=== PATIENT | female | born 1955 | race Caucasian/White ===

== ENCOUNTER 2021-02-16 16:31 | Emergency (ER) | payer SELFPAY ==
[2021-02-16 16:42] VITALS: BP 152/80; TEMP 101.4
[2021-02-16] MEDS ORDERED: ACETAMINOPHEN TAB 500 MG TAB PO STA (16:45)
--- NOTE | 2021-02-16 16:52 | ED ---
General Adult HPI - General Chief complaint: Upper Respiratory Infection Stated complaint: SOB Time Seen by Provider: 02/16/21 16:33 Source: patient, RN notes reviewed Mode of arrival: ambulatory Limitations: no limitations - History of Present Illness Initial comments: Patient is a pleasant [age]-year-old female presenting to the emergency department not feeling well. Symptoms have been occurring for around 10 days. Patient has had mild cough that worsened 2 days ago. Cough is dry nonproductive. Patient does feel short of breath. Patient has had intermittent subjective fevers. Patient did go to urgent care earlier and had an x-ray concerning for pneumonia. No loss of taste or smell. Patient has had some loose stools and decreased appetite. - Related Data Home Medications Medication Instructions Recorded Confirmed Cholecalciferol [Vitamin D3 (25 25 mcg PO DAILY 02/16/21 02/16/21 Mcg = 1000 Iu)] Multivitamins, Thera [Multivitamin 1 tab PO DAILY 02/16/21 02/16/21 (formulary)] [place]-3 Fatty Acids/Fish Oil [Fish 1 cap PO DAILY 02/16/21 02/16/21 Oil 1,000 mg Softgel] Allergies Allergy/AdvReac Type Severity Reaction Status Date / Time No Known Allergies Allergy Verified 02/16/21 17:36 Review of Systems ROS Statement: Those systems with pertinent positive or pertinent negative responses have been documented in the HPI. ROS Other: All systems not noted in ROS Statement are negative. Constitutional: Reports: as per HPI, fever, chills Eyes: Denies: eye pain ENT: Denies: ear pain Respiratory: Reports: as per HPI, cough, dyspnea Cardiovascular: Denies: chest pain Endocrine: Reports: fatigue Gastrointestinal: Denies: abdominal pain Genitourinary: Denies: dysuria Musculoskeletal: Denies: back pain Skin: Denies: rash Neurological: Denies: headache Past Medical History Past Medical History: No Reported History History of Any Multi-Drug Resistant Organisms: None Reported Past Surgical History: No Surgical Hx Reported Past Psychological History: No Psychological Hx Reported Smoking Status: Never smoker Past Alcohol Use History: Occasional Past Drug Use History: None Reported General Exam Limitations: no limitations General appearance: alert, in no apparent distress Head exam: Present: normocephalic Eye exam: Present: normal appearance Neck exam: Present: normal inspection Respiratory exam: Present: normal lung sounds bilaterally Cardiovascular Exam: Present: regular rate, normal rhythm GI/Abdominal exam: Present: soft. Absent: tenderness Extremities exam: Present: normal inspection. Absent: pedal edema, calf tenderness Neurological exam: Present: alert Psychiatric exam: Present: normal affect, normal mood Skin exam: Present: normal color Course Vital Signs 02/16/21 02/16/21 02/16/21 16:33 16:35 16:37 Temperature 101.4 F H Pulse Rate 102 H 92 Respiratory 20 18 18 Rate Blood Pressure 152/80 O2 Sat by Pulse 93 L 93 L Oximetry 02/16/21 17:00 Temperature Pulse Rate 96 Respiratory 18 Rate Blood Pressure 152/80 O2 Sat by Pulse 92 L Oximetry Medical Decision Making - Medical Decision Making Patient reevaluated and updated. Pulse ox 92-93% on room air. Patient is comfortable with discharge home. Patient updated on results and need for follow-up. - Lab Data Result diagrams: 02/16/21 16:58 02/16/21 16:58 Lab Results 02/16/21 02/16/21 02/16/21 Range/Units 16:45 16:58 16:58 WBC 6.7 (3.8-10.6) k/uL RBC 4.62 (3.80-5.40) m/uL Hgb 13.7 (11.4-16.0) gm/dL Hct 40.3 (34.0-46.0) % MCV 87.2 (80.0-100.0) fL MCH 29.7 (25.0-35.0) pg MCHC 34.0 (31.0-37.0) g/dL RDW 13.7 (11.5-15.5) % Plt Count 286 (150-450) k/uL MPV 7.5 Neutrophils % (Manual) 77 % Band Neuts % (Manual) 8 % Lymphocytes % (Manual) 9 % Monocytes % (Manual) 6 % Neutrophils # (Manual) 5.60 (1.3-7.7) k/uL Lymphocytes # (Manual) 0.60 L (1.0-4.8) k/uL Monocytes # (Manual) 0.40 (0-1.0) k/uL Nucleated RBCs 0 (0-0) /100 WBC Manual Slide Review Performed Sodium 135 L (137-145) mmol/L Potassium 3.6 (3.5-5.1) mmol/L Chloride 98 (98-107) mmol/L Carbon Dioxide 24 (22-30) mmol/L Anion Gap 13 mmol/L BUN 13 (7-17) mg/dL Creatinine 0.46 L (0.52-1.04) mg/dL Est GFR (CKD-EPI)AfAm >90 (>60 ml/min/1.73 sqM) Est GFR (CKD-EPI)NonAf >90 (>60 ml/min/1.73 sqM) Glucose 141 H (74-99) mg/dL Plasma Lactic Acid Os[place] (0.7-2.0) mmol/L Calcium 8.8 (8.4-10.2) mg/dL Total Bilirubin 0.7 (0.2-1.3) mg/dL AST 147 H (14-36) U/L ALT 88 H (4-34) U/L Alkaline Phosphatase 124 (38-126) U/L Total Protein 6.4 (6.3-8.2) g/dL Albumin 3.7 (3.5-5.0) g/dL Coronavirus (PCR) Detected A (Not Detectd) 02/16/21 Range/Units 16:58 WBC (3.8-10.6) k/uL RBC (3.80-5.40) m/uL Hgb (11.4-16.0) gm/dL Hct (34.0-46.0) % MCV (80.0-100.0) fL MCH (25.0-35.0) pg MCHC (31.0-37.0) g/dL RDW (11.5-15.5) % Plt Count (150-450) k/uL MPV Neutrophils % (Manual) % Band Neuts % (Manual) % Lymphocytes % (Manual) % Monocytes % (Manual) % Neutrophils # (Manual) (1.3-7.7) k/uL Lymphocytes # (Manual) (1.0-4.8) k/uL Monocytes # (Manual) (0-1.0) k/uL Nucleated RBCs (0-0) /100 WBC Manual Slide Review Sodium (137-145) mmol/L Potassium (3.5-5.1) mmol/L Chloride (98-107) mmol/L Carbon Dioxide (22-30) mmol/L Anion Gap mmol/L BUN (7-17) mg/dL Creatinine (0.52-1.04) mg/dL Est GFR (CKD-EPI)AfAm (>60 ml/min/1.73 sqM) Est GFR (CKD-EPI)NonAf (>60 ml/min/1.73 sqM) Glucose (74-99) mg/dL Plasma Lactic Acid Osiel 2.8 H* (0.7-2.0) mmol/L Calcium (8.4-10.2) mg/dL Total Bilirubin (0.2-1.3) mg/dL AST (14-36) U/L ALT (4-34) U/L Alkaline Phosphatase (38-126) U/L Total Protein (6.3-8.2) g/dL Albumin (3.5-5.0) g/dL Coronavirus (PCR) (Not Detectd) - Radiology Data Radiology results: image reviewed (Chest x-ray does show some lower lobe infiltrate bilaterally) Disposition Clinical Impression: COVID-19 Disposition: HOME SELF-CARE Condition: Stable Instructions (If sedation given, give patient instructions): Coronavirus Disease 2019 (COVID-19) Additional Instructions: Please follow-up with primary care physician within the next day or 2 for recheck. [id number] Tylenol as needed for fever. [id number] vitamin C, vitamin D, increasing to help. Melatonin may help as well. Return for difficulty breathing, not tolerating fluids, worsening symptoms or other concerns. Is patient prescribed a controlled substance at d/c from ED?: No Referrals: Quinton Wheeler MD [STAFF PHYSICIAN] - 1-2 days Time of Disposition: 18:44
--- NOTE | 2021-02-16 17:15 | XR ---
EXAMINATION TYPE: XR chest 2V DATE OF EXAM: 02/16/2021 COMPARISON: NONE HISTORY: Short of breath. Fever. TECHNIQUE: 2 views FINDINGS: There is coarse interstitial mild infiltrate at both lower lobes. The upper lung bond are fairly clear. There are no hilar masses. Heart and mediastinum are normal. There is no pleural effus ion. IMPRESSION: Bilateral lower lobe interstitial pneumonia. Normal heart. No heart failure seen.
[2021-02-16 17:17] LABS: HCT 40.3 % (34.0-46.0); HGB 13.7 gm/dL (11.4-16.0); MCH 29.7 pg (25.0-35.0); MCV 87.2 fL (80.0-100.0); Mean Platelet Volume 7.5; Platelet Count 286 k/uL (150-450); RBC 4.62 m/uL (3.80-5.40); RDW 13.7 % (11.5-15.5); WBC 6.7 k/uL (3.8-10.6)
[2021-02-16 17:26] LABS: ALT 88 U/L (4-34); AST 147 U/L (14-36); African American GFR (CKD) >90 (>60 ml/min/1.73 sqM); Albumin 3.7 g/dL (3.5-5.0); Alkaline Phosphatase 124 U/L (38-126); Anion Gap 13 mmol/L; Blood Urea Nitrogen 13 mg/dL (7-17); Calcium 8.8 mg/dL (8.4-10.2); Carbon Dioxide 24 mmol/L (22-30); Chloride 98 mmol/L (98-107); Glucose 141 mg/dL (74-99); Non-African American GFR(CKD) >90 (>60 ml/min/1.73 sqM); Potassium 3.6 mmol/L (3.5-5.1); Sodium 135 mmol/L (137-145); Total Bilirubin 0.7 mg/dL (0.2-1.3); Total Protein 6.4 g/dL (6.3-8.2)
[2021-02-16 17:39] VITALS: PULSE 96; RESP 18
[2021-02-16 17:46] LABS: Band Neutrophils % 8 %; Neutrophils % (M) 77 %; Nucleated Red Blood Cells 0 /100 WBC (0-0); Total Cells Counted 100
== END 2021-02-16 19:03 | disposition home or self-care (01) ==
LOC: EC 16:31
DX: U07.1 COVID-19 (principal)
CPT/HCPCS: 36415; 71046; 80053; 83605; 85025; 87635; 99285